=== PATIENT | female | born 1990 | race Caucasian/White ===

== ENCOUNTER 2019-05-04 04:38 | Inpatient (IN) | payer OTHER ==
[2019-05-04] MEDS ORDERED: METHYLERGONOVINE 0.2MG/ML AMP IM PRN ×2 (05:00→08:32)
[2019-05-04] MEDS ORDERED: Ringers Lactate 1,000 ML IV PRN (05:00)
[2019-05-04] MEDS ORDERED: PROMETHAZINE 25 MG/ML VIAL IV PRN (05:00)
[2019-05-04] MEDS ORDERED: Ringers Lactate 1,000 ML IV SCH (05:00)
[2019-05-04] MEDS ORDERED: OXYTOCIN/LR 20 UNIT/1,000 ML BAG IV SCH ×2 (05:00→09:00)
[2019-05-04] MEDS ORDERED: BUTORPHANOL 1 MG/ML INJ IV PRN (05:00)
[2019-05-04] MEDS ORDERED: PENICILLIN 5 MU in NA CHLORIDE 0.9% 100 ML IV ONE (05:00)
[2019-05-04] MEDS ORDERED: CARBOPROST TROME 250 MCG/ML IM PRN ×2 (05:00→08:32)
[2019-05-04] MEDS ORDERED: BUTORPHANOL 1 MG/ML INJ ONE (05:02)
[2019-05-04] MEDS ORDERED: PROMETHAZINE 25 MG/ML VIAL ONE (05:03)
[2019-05-04] MEDS ORDERED: METHYLERGONOVINE 0.2MG/ML AMP IM ONE (05:15)
[2019-05-04] MEDS ORDERED: LIDOCAINE 1% MPF 30 ML VIAL ONE (05:15)
[2019-05-04] MEDS ORDERED: OXYTOCIN/LR 20 UNIT/1,000 ML BAG IV ONE (05:15)
[2019-05-04 05:18] LABS: Absolute Lymphocytes (CBC) 2.5 K/uL (0.7-4.9); Basophils % 0.7 % (0-1.3); Hematocrit 43.6 % (36.0-45.0); Lymphocytes % 24.8 % (15.3-44.8); MPV 9.3 fL (7.6-11.3); RBC Red Blood Cell Count 4.96 M/uL (3.86-4.86)
[2019-05-04 05:36] VITALS: BMI 27.4
[2019-05-04] MEDS ORDERED: FENTANYL CITR 100 MCG/2 ML IV PRN (06:05)
[2019-05-04] MEDS ORDERED: ROPIVACAINE HCL 100 ML IV PRN (06:05)
[2019-05-04] MEDS ORDERED: ROPIVACAINE HCL 0.2% 20ML AMP SQ ONE (06:07)
[2019-05-04 06:13] LABS: Urine Appearance CLEAR; Urine Bilirubin NEGATIVE (NEG); Urine Blood NEGATIVE (NEG); Urine Color YELLOW; Urine Glucose NEGATIVE (NEG); Urine Protein NEGATIVE (NEG); Urine Urobilinogen 0.2 mg/dL (0.2-1.0)
[2019-05-04 06:15] LABS: Urine Microscopic Reflex NO UMIC
[2019-05-04] MEDS ORDERED: PENICILLIN G POT 5 MU/100 ML IVPB IV SCH (08:00)
[2019-05-04] MEDS ORDERED: ONDANSETRON 4 MG (ODT) TAB PO PRN (08:32)
[2019-05-04] MEDS ORDERED: METHYLERGONOVINE 0.2 MG TAB PO PRN (08:32)
[2019-05-04] MEDS ORDERED: Oxycodone HCl/Acetaminophen 1 TAB TAB PO PRN (08:32)
--- NOTE | 2019-05-04 08:35 | P.BOP ---
Preoperative diagnosis: 39 wk , active labor Postoperative diagnosis: Same, viable male infant Primary procedure: Low forcep delivery, OP presentation Secondary procedure: Right midline episiotomy with repair Estimated blood loss: 450ml Anesthesia: epidural Complications: None Transferred to: Other (274) Condition: Good
[2019-05-04] MEDS ORDERED: INFLUENZA VACCINE (for 3y+) 0.5 ML DOSE IMVAC ONE (11:00)
[2019-05-04] MEDS: IBUPROFEN 600 MG TAB PO PRN ×2 (15:35→21:59)
[2019-05-05 04:41] LABS: RPR (Rapid Plasma Reagin) NON-REACT (NON-REACT)
[2019-05-05] MEDS ORDERED: Ringers Lactate 2,000 ML IV ONE (06:52)
[2019-05-05 07:15] VITALS: BP 123/82; TEMP 97.5
[2019-05-05] MEDS: IBUPROFEN 600 MG TAB PO PRN (08:30)
--- NOTE | 2019-05-06 08:41 | PREOPHP ---
Date of Admission: 05/04/2019 History: Ms. 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 She is a t approximately 39 weeks' gestation, is admitted for active rapidly advancing labor. She noticed con tractions starting about 3 this morning, presented to Labor and Delivery and was noted to be 7 cm. Past Medical History: Please see record. Family History: Please see record. Review of Systems: She reports no recent cough, cold, fever, or chills. No recent nausea or vomiting. No breast knots or lumps. No bowel or bladder issues. Physical Examination: General: Pleasant female, in moderate discomfort. Neck: Supple without adenopathy or thyromegaly. Lungs: Clear. Cardiac: Regular rate and rhythm without murmurs. Breasts: Not examined. Abdomen: Estimated weight of approximately 7+ pounds. Pelvic: On admission was 7 cm. Cervix was 7 cm, vertex presentation. Extremities: No cyanosis, clubbing, or edema. Impression: Term , active labor. Plan: The patient is being prophylaxed with penicillin because of positive beta strep carriage. We will use IV analgesia until fluids are instilled and epidural can possibly be placed. YESSICA Voice ID: [id number]
--- NOTE | 2019-05-06 08:41 | DN ---
Surgeon: Mark Mcneil MD Ms. Ferro is a 28-year-old female, 3, para 2-0-0-2 at 38+ weeks gestation, admitted in active labor, noted to be 7 cm dilated after a single dose of penicillin was given for b eta strep prophylaxis, epidural catheter placed. Artificial rupture of membranes was performed at ap proximately 9 cm. She had a first stage of labor of 4 hours and 20 minutes, second stage of labor at 33 minutes. She delivered by low forceps delivery of an 8 pounds 2 ounce male , 9 and 9 . Infant delivered by forceps secondary to severe variable decelerations with expulsive efforts. In naty delivered occiput posterior. Cord noted around the infant's shoulder. Infant was delivered ove r a right midline episiotomy. After delayed cord clamping and milking of cord towards the , th e cord was clamped, cut, and infant placed on mother's upper abdomen. Cord blood was obtained. The placenta was spontaneously expelled and appeared to be intact. Intrauterine examination revealed no retained placental fragments. Episiotomy was repaired in the usual fashion with 3-0 Vicryl suture. The patient received 1 mg of Stadol and 12.5 mg Phenergan for IV analgesia prior to the placement of epidural catheter. FLOR/LETICIA Voice ID: [id number] Report ID: [id number]
--- NOTE | 2019-05-06 08:45 | DS ---
Date of Discharge: 05/05/2019 Final Hospital Discharge Diagnosis: 38+ week , delivered. Complications: hemorrhage with blood loss anemia. Procedures: Artificial rupture of membranes, placement of epidural catheter, right midline episiotom y, low forceps delivery of viable male , repair of episiotomy. Hospital Course: The patient is a 28-year-old female, 3, para 2-0-0-2 at [facility], admitted in active labor. She delivered 8 pound 2 ounce male , 9 and 9 with low for ceps secondary to occiput posterior presentation and severe variable decelerations during second stag e of labor. She was dismissed on the first day ambulatory on a select diet with routine p ost vaginal delivery activity restrictions, suffered mild blood loss anemia, probably secondary to mi ld atony and right midline episiotomy. Her lab work showed an admission hemoglobin and hematocrit of 15.1 and 43.6, dismissal hematocrit 30.9. She had a negative urinalysis, nonreactive RPR, is Rh pos itive blood type. She was dismissed to continue taking her iron and vitamins with prescript ion for Tylenol No. 3 #10 for pain relief, to be seen back in my office in 1 week with the usual post vaginal delivery activity restrictions. FLOR/LETICIA Voice ID: [id number] Report ID: [id number]
[2019-05-08 04:38] LABS: HBsAG Nonreactive (Nonreactive)
== END 2019-05-05 08:42 | disposition home or self-care (01) | DRG 806 ==
LOC: 2ND-WC 04:38
PROVIDERS: ADMIT Specialist; ATTEND Specialist
PROC: 10D07Z3 Extraction of Products of Conception, Low Forceps, Via Natural or Artificial Opening (ICD-10-PCS; principal; 2019-05-04)
PROC: 0W8NXZZ Division of Female Perineum, External Approach (ICD-10-PCS; 2019-05-04)
PROC: 10907ZC Drainage of Amniotic Fluid, Therapeutic from Products of Conception, Via Natural or Artificial Opening (ICD-10-PCS; 2019-05-04)
DX: O76 Abnormality in fetal heart rate and rhythm complicating labor and delivery (principal); O72.1 Other immediate postpartum hemorrhage; Z37.0 Single live birth; O99.824 Streptococcus B carrier state complicating childbirth; O69.2XX0 Labor and delivery complicated by other cord entanglement, with compression, not applicable or unspecified; O99.02 Anemia complicating childbirth; Z3A.38 38 weeks gestation of pregnancy
CPT/HCPCS: 36415; 81003; 85014; 85025; 86592; 86901; 87340; J0595; J2210; J2550; J2590; J2795; J3010; J7120

== ENCOUNTER 2019-09-03 06:34 | Day surgery (SDC) | payer OTHER ==
[2019-09-03 06:57] LABS: Specific Gravity >= 1.030 (1.005-1.030)
[2019-09-03] MEDS ORDERED: Ringers Lactate 1,000 ML IV ONE (07:03)
[2019-09-03] MEDS ORDERED: propofoL 200 MG/20 ML VIAL IV ONE (07:30)
[2019-09-03] MEDS ORDERED: LIDOCAINE 1% MPF 5 ML VIAL ONE (07:30)
[2019-09-03] MEDS ORDERED: FENTANYL CITR 100 MCG/2 ML ONE (07:30)
[2019-09-03] MEDS ORDERED: CEFAZOLIN/SWI 1gm 1 GM/10 ML SYR ONE (07:49)
[2019-09-03] MEDS ORDERED: KETOROLAC 30 MG/ML INJ ONE (08:22)
[2019-09-03] MEDS ORDERED: ONDANSETRON 4 MG/2 ML VIAL ONE (08:23)
--- NOTE | 2019-09-03 08:51 | P.BOP ---
Preoperative diagnosis: right inner thigh infected subQ mass , abscess 4x4cm Postoperative diagnosis: same Primary procedure: Excisional biopsy right inner thigh infected subQ mass with abscess drain Estimated blood loss: <10cc Specimen: mass, culture Findings: as above Anesthesia: General Complications: None Drain(s): Other (wet to dry) Transferred to: Recovery Room Condition: Good
[2019-09-03 09:37] VITALS: BP 121/70; TEMP 97.6; O2SAT 93
[2019-09-03] MEDS ORDERED: CODEINE 30MG/APAP 300MG TAB ONE (09:49)
--- NOTE | 2019-09-09 20:13 | OP ---
Surgeon: Jessee William MD Preoperative Diagnosis: Right inner thigh infected subcutaneous mass with abscess 4 x 4 cm. Postoperative Diagnosis: Right inner thigh infected subcutaneous mass with abscess 4 x 4 cm. Procedure: Excisional biopsy of right inner thigh infected subcutaneous mass with abscess drainage 4 x 4 cm. Specimens: Mass and culture. Anesthesia: General plus local. Indications: This is a case of a female who comes to us with enlarging mass on the right subcutaneou s area with redness, erythema, fluctuance consistent with an abscess complicated mass. Benefits and risks of excisional biopsy of mass with abscess drainage fully explained which include but not limite d to infection, bleeding, damage to adjacent structures, anesthesia complication, nonhealing wound, M I, and even . She also understands this may not relieve any of her symptoms, she might need mor e than 1 surgical intervention. She understood, signed a consent. She does understand she will requ astrid wound care and she has family members who are willing to do so. She signed a consent. The case was scheduled as urgent/emergent due to the infection in the area. Description Of Procedure: Patient was brought to the operating room and placed in supine position. Anesthesia was done without complication. Time-out was called. Right thigh was prepped and draped i n usual sterile fashion. We previously marked the area of concern. An incision was made in that are a. Immediately pus was obtained. We have to remove the mass in that area several centimeters down. The muscle seemed to be intact. Some of the fascia was involved, but muscle seemed to be okay. Aft er that, we obtained hemostasis and packed the area with wet-to-dry dressing after culturing the pus. Patient tolerated the procedure well. Patient was sent to Recovery in stable condition. Sponge co unt and instrument counts were correct. Disposition: Home. Activity: As tolerated. No heavy lifting. Discharge Instructions: Follow up in my office in 1 week. Call for appointment at [phone]. Wet-to -dry dressing daily. Medications: See orders. HM/MODL Voice ID: [id number] Report ID: [id number]
== END 2019-09-03 10:10 | disposition home or self-care (01) ==
LOC: OR 06:34
PROVIDERS: ATTEND Surgery
PROC: 0JBL0ZZ Excision of Right Upper Leg Subcutaneous Tissue and Fascia, Open Approach (ICD-10-PCS; principal; 2019-09-03 07:30)
DX: R22.41 Localized swelling, mass and lump, right lower limb (principal); L02.415 Cutaneous abscess of right lower limb
CPT/HCPCS: 87070; 87205; 81025; 88304; 87075; 11404; J2704; J3010; J0690; J7120; J2405; 88305

== ENCOUNTER 2022-10-28 07:26 | Day surgery (SDC) | payer OTHER ==
[2022-10-28] MEDS ORDERED: Ringers Lactate 1,000 ML IV ONE (08:05)
[2022-10-28 08:36] LABS: Urine Specific Gravity/Preg >1.030 (1.005-1.030)
[2022-10-28] MEDS ORDERED: propofoL 200 MG/20 ML VIAL IV ONE ×2 (08:50→10:06)
[2022-10-28] MEDS ORDERED: FENTANYL CITR 100 MCG/2 ML ONE ×2 (08:50→10:05)
[2022-10-28] MEDS ORDERED: MIDAZOLAM HCL 2 MG/2 ML INJ ONE ×2 (08:51→10:07)
[2022-10-28] MEDS ORDERED: ONDANSETRON 4 MG/2 ML VIAL ONE ×2 (08:52→10:07)
[2022-10-28] MEDS ORDERED: LIDOCAINE 2% MPF 5 ML VIAL ONE ×2 (08:52→10:06)
[2022-10-28] MEDS ORDERED: ROCURONIUM 50 MG/5 ML VIAL IV ONE (08:53)
[2022-10-28] MEDS ORDERED: GLYCOPYRROLATE 0.2 MG/ML SYR ONE (08:56)
[2022-10-28] MEDS ORDERED: NEOSTIGMINE 1 MG/ML -10 ML VIAL ONE (08:56)
[2022-10-28] MEDS ORDERED: dexAMETHasone 4 MG/ML VIAL ONE (08:56)
--- NOTE | 2022-10-28 10:14 | P.OP ---
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 Details of operation: The patient was brought to the operating room and placed under general anesthesia via oral endotracheal tube. The head of bed was turned 90 degrees. A shoulder roll was placed and the neck was extended. A head drape was applied. The McIvor mouthgag was placed and suspended from the Champagne stand. The oxygen concentration was confirmed with the anesthesiologist and was less than 40%. Weight-based dexamethasone was administered by the anesthesiologist. The soft palate was palpated and there was no submucous cleft. A red rubber catheter was placed in the nose and the tip withdrawn through the mouth and secured to the head drape for retraction of the soft palate. The tonsils were noted to be small to moderate in size. The left tonsil was grasped with a straight Allis clamp. The Bovie electrocautery was used to incise the mucosa over the anterior pillar and identified the tonsillar capsule. The tonsil was dissected using cautery and blunt dissection until free from soft tissue attachments. A tonsil ball was placed to aid in hemostasis. The right tonsil was removed in a similar manner. The tonsillar fossa's were injected with 0.5% Marcaine; a total of 2.5 mi lliliters was used. After injection of local anesthetic, there was bleeding along the posterior pillar on the right side which was treated with pressure, ligated with a Vicryl Endoloop and additional pressure which resulted in excellent hemostasis. The oropharynx was irrigated with cold saline. After suctioning, a Marion sump orogastric tube was passed for decompression of the stomach. The red rubber catheter was removed and used to suction the oropharynx, nasopharynx, and nasal cavities. The McIvor mouthgag was removed. There was no evidence of injury to the teeth, lips, or tongue. The mandible was mobile. The patient was then awakened from anesthesia and extubated in the operating room, taken to the recovery room in stable condition. Disposition: The patient will be discharged home later today in the care of their family with written postoperative instructions and appropriate pain medications. They will follow-up in Dr. Zhao's office in approximately 1 month. They are instructed to contact Dr. Zhao's office for any bleeding or other concerns.
[2022-10-28 10:21] VITALS: O2SAT 100
[2022-10-28] MEDS: HYDROMORPHONE HCL 1 MG/ML INJ ONE ×2 (10:30→10:35)
[2022-10-28] MEDS ORDERED: HYDROCOD 2.5mg-ACETAMIN 108mg/5mL Soln ONE (11:09)
[2022-10-28 12:00] VITALS: BP 118/76; TEMP 97.8
== END 2022-10-28 11:40 | disposition home or self-care (01) ==
LOC: OR 07:26
PROVIDERS: ATTEND Otolaryngology
PROC: 0CTPXZZ Resection of Tonsils, External Approach (ICD-10-PCS; principal; 2022-10-28 09:00)
DX: J35.01 Chronic tonsillitis (principal); J03.91 Acute recurrent tonsillitis, unspecified
CPT/HCPCS: 81025; 88304; 42826; J2704; J1100; J2710; J2001; J2250; J3010; J1170; J2405; J7120